=== PATIENT | female | born 1965 | race Caucasian/White ===

== ENCOUNTER 2018-03-26 09:49 | Day surgery (SDC) | payer BC ==
[~2018-03-26] VITALS: Ht 167.6 cm; Wt 59.1 kg
[2018-03-26] MEDS ORDERED: LEVLIO1 (10:11)
== END 2018-03-26 11:41 | disposition home or self-care (01) ==
LOC: ORSCSDS 09:49
PROVIDERS: Internal Medicine Gastroenterology
PROC: 0DB68ZX Excision of Stomach, Via Natural or Artificial Opening Endoscopic, Diagnostic (ICD-10-PCS; principal; 2018-03-26 11:00)
DX: K21.9 Gastro-esophageal reflux disease without esophagitis (principal); K29.70 Gastritis, unspecified, without bleeding; D64.9 Anemia, unspecified; E03.9 Hypothyroidism, unspecified; Z79.899 Other long term (current) drug therapy

== ENCOUNTER 2024-08-14 07:28 | Day surgery (SDC) | payer BC ==
[~2024-08-14 07:28] MED LIST: LEVLIO1
[2024-08-14] MEDS ORDERED: Metoprolol Tartrate 1 MG/ML 5 ML VIAL IV ONE (17:11)
== END 2024-08-15 01:20 | disposition home or self-care (01) ==
LOC: CT 07:28
DX: R06.09 Other forms of dyspnea (principal); R07.89 Other chest pain; R53.83 Other fatigue; I10 Essential (primary) hypertension; E03.9 Hypothyroidism, unspecified; I47.10 Supraventricular tachycardia, unspecified; Z79.890 Hormone replacement therapy; Z79.899 Other long term (current) drug therapy
CPT/HCPCS: 75574; Q9967

== ENCOUNTER → 2025-08-16 | Outpatient (CLI) | payer BC ==
[2025-08-20 07:49] LABS: CORTISOL,U FREE - RATIO TO CRT 27.14 ug/g CRT; CORTISOL,URINE FREE - PER 24H 33.1 ug/d (<=45.0); CORTISOL,URN FREE - PER VOLUME 11.40 ug/L; CREATININE,URINE - PER 24H 1218 mg/d (500-1400); CREATININE,URINE - PER VOLUME 42 mg/dL
[2025-08-20 09:19] LABS: HOURS COLLECTED 24
== END | disposition home or self-care (01) ==
LOC: LAB SHORT 06:30 → LAB 06:30 → LAB FUT 08-10 12:45
PROVIDERS: Naturopath
DX: Z00.00 Encounter for general adult medical examination without abnormal findings (principal); Z13.1 Encounter for screening for diabetes mellitus; Z13.220 Encounter for screening for lipoid disorders; I10 Essential (primary) hypertension; R53.1 Weakness; R63.5 Abnormal weight gain; R53.82 Chronic fatigue, unspecified; Z82.49 Family history of ischemic heart disease and other diseases of the circulatory system
CPT/HCPCS: 81050; 82530; 82570